=== PATIENT | male | born 1965 | race Two or more races ===

== ENCOUNTER 2024-07-17 11:56 | Inpatient (IN) | payer MEDICAID ==
[~2024-07-17] VITALS: Ht 177.8 cm; Wt 78.5 kg
[2024-07-17 13:10] LABS: APPEARANCE,URINE CLEAR (CLEAR); BILIRUBIN,URINE NEGATIVE (NEGATIVE); BLOOD, URINE NEGATIVE Ery/uL (NEGATIVE); COLOR,URINE YELLOW (YELLOW); KETONES,URINE NEGATIVE (NEGATIVE); LEUKOCYTE ESTERASE ,URINE NEGATIVE (NEGATIVE); NITRITE, URINE NEGATIVE (NEGATIVE); PROTEIN,URINE NEGATIVE (NEGATIVE); UGLUCOSE NEGATIVE (NEGATIVE)
[2024-07-17 13:13] LABS: INR 1.36 (0.91-1.10); PARTIAL THROMBOPLASTIN TIME 32.8 SEC (24.3-34.3); PROTHROMBIN TIME 14.1 SECS (9.2-11.1)
[2024-07-17 13:25] LABS: CALCIUM, SERUM 9.7 mg/dL (8.5-10.1); CARBON DIOXIDE 22 mmol/L (21-32); CHLORIDE 105 mmol/L (98-107); CREATININE 1.3 mg/dL (0.6-1.3); GLUCOSE 284 mg/dL (74-106); POTASSIUM 3.8 mmol/L (3.5-5.1); SODIUM SERUM 141 mmol/L (136-145); UREA NITROGEN, BLOOD 16 mg/dL (7-18)
[2024-07-17 13:28] LABS: SERUM AMMONIA 191 umol/L (11-32)
[2024-07-17 13:30] LABS: ADD URINE CULTURE YES; AMPHETAMINE, URINE NEGATIVE (NEGATIVE); BACTERIA,URINE Moderate /HPF (None Seen); BARBITURATE, URINE NEGATIVE (NEGATIVE); BENZODIAZEPINE, URINE NEGATIVE (NEGATIVE); CANNABINOID, URINE NEGATIVE (NEGATIVE); COCCAINE, URINE NEGATIVE (NEGATIVE); OPIATE, URINE NEGATIVE (NEGATIVE); PHENCYCLIDINE SCREEN,URINE NEGATIVE (NEGATIVE); RBC,URINE 0-2 /HPF (0-2); SQUAMOUS EPITHELIAL CELL,UR None Seen /HPF (None Seen); WBC,URINE 0-2 /HPF (0-3)
[2024-07-17 13:30] LABS: ALANINE AMINOTRANSFERASE 37 U/L (12-78); ALKALINE PHOSPHATASE 247 U/L (46-116); ASPARTATE AMINOTRANSFERASE 42 U/L (15-37); BILIRUBIN,DIRECT 0.7 mg/dL (0.0-0.2); BILIRUBIN,TOTAL 1.9 mg/dL (0.2-1.0); TOTAL PROTEIN, SERUM 7.4 g/dL (6.4-8.2)
[2024-07-17 13:31] LABS: SALICYLATE < 0.2 mg/dL (2.8-20.0)
[2024-07-17 13:37] LABS: ACETAMINOPHEN <10 ug/ml (10-30); ALCOHOL, BLOOD < 10 mg/dL (0-10)
[2024-07-17 13:50] LABS: BASOPHILS % (AUTO) 0.2 % (0.0-2.0); EOSINOPHILS # (AUTO) 0.1 K/uL (0.0-0.7); EOSINOPHILS % (AUTO) 0.9 % (0.0-6.0); HEMATOCRIT 35 % (39-51); HEMOGLOBIN 12.5 g/dL (13.5-17.5); LYMPHOCYTES % (AUTO) 14.7 % (20.0-44.0); MEAN CORPUSCULAR HEMOGLOBIN 33 PG (26.0-33.0); MEAN CORPUSCULAR HGB CONC 35 g/dl (31.0-36.0); MEAN CORPUSCULAR VOLUME 93 fL (80-96); MONOCYTES # (AUTO) 0.7 K/uL (0.1-1.30); MONOCYTES % (AUTO) 9.7 % (2.0-12.0); NEUTROPHILS % (AUTO) 74.5 % (43.0-81.0); PLATELET COUNT (AUTO) 126 K/uL (150-450); RED CELL DISTRIBUTION WIDTH 14.8 % (11.5-15.0); WHITE BLOOD COUNT (AUTO) 6.7 K/uL (4.3-11.0)
[2024-07-17] MEDS: LACTULOSE 10 G/15 ML UDC (PYXIS) PO STA (16:21)
[2024-07-17] MEDS: RIFAXIMIN 200 MG TABLET PO STA (16:22)
[2024-07-17] MEDS ORDERED: LACTULOSE 10 G/15 ML UDC (PYXIS) ONE (16:28)
[2024-07-17] MEDS ORDERED: ACETAMINOPHEN 325 MG TABLET PO PRN (17:00)
[2024-07-17] MEDS ORDERED: DEXTROSE 50%-WATER 50 ML DISP.SYRIN IV PRN (17:00)
[2024-07-17] MEDS ORDERED: LACTULOSE 10 G/15 ML UDC (PYXIS) PR ONE (17:00)
[2024-07-17] MEDS ORDERED: POTA10TA11 PO (17:15)
[2024-07-17] MEDS ORDERED: RIFA550T PO (17:15)
[2024-07-17] MEDS ORDERED: NALT50TA PO (17:15)
[2024-07-17] MEDS ORDERED: ATOR10TA PO (17:15)
[2024-07-17] MEDS ORDERED: LACT10SO58 PO (17:15)
[2024-07-17] MEDS ORDERED: FURO-144 PO (17:15)
[2024-07-17] MEDS ORDERED: METF-442 PO (17:15)
[2024-07-17] MEDS ORDERED: PANT40TA2 PO (17:15)
[2024-07-17] MEDS ORDERED: TAMS-12 PO (17:15)
[2024-07-17] MEDS ORDERED: APIX5TAB PO (17:15)
[2024-07-17] MEDS: BLOOD SUGAR DIAGNOSTIC 1 EACH STRIP VI SCH (17:30)
[2024-07-17] MEDS: LACTULOSE 10 G/15 ML UDC (PYXIS) PO SCH (17:46)
[2024-07-17] MEDS: RIFAXIMIN 550 MG TABLET PO SCH (17:46)
[2024-07-17] MEDS: LACTULOSE UDC 200 G in SODIUM CHLORIDE IRRIG SOLUTION 400 ML IR ONE (17:55)
[2024-07-17 18:37] VITALS: BP 135/75; TEMP 98.3; O2SAT 98
[2024-07-17 20:00] VITALS: BP 145/73; TEMP 97.9; O2SAT 99
[2024-07-18] VITALS: BP 148/67; TEMP 97.9; O2SAT 98
[2024-07-18 04:00] VITALS: BP 147/65; TEMP 98; O2SAT 99
[2024-07-18 07:34] LABS: BASOPHILS # (AUTO) 0.1 K/uL (0.0-0.2); BASOPHILS % (AUTO) 0.8 % (0.0-2.0); EOSINOPHILS # (AUTO) 0.3 K/uL (0.0-0.7); EOSINOPHILS % (AUTO) 4.6 % (0.0-6.0); HEMATOCRIT 35 % (39-51); HEMOGLOBIN 12.2 g/dL (13.5-17.5); LYMPHOCYTES # (AUTO) 1.7 K/uL (0.8-4.8); LYMPHOCYTES % (AUTO) 27.6 % (20.0-44.0); MEAN CORPUSCULAR HEMOGLOBIN 32 PG (26.0-33.0); MEAN CORPUSCULAR HGB CONC 35 g/dl (31.0-36.0); MEAN CORPUSCULAR VOLUME 94 fL (80-96); MONOCYTES # (AUTO) 0.7 K/uL (0.1-1.30); MONOCYTES % (AUTO) 10.5 % (2.0-12.0); NEUTROPHILS # (AUTO) 3.5 K/uL (1.8-8.9); NEUTROPHILS % (AUTO) 56.5 % (43.0-81.0); PLATELET COUNT (AUTO) 128 K/uL (150-450); RED BLOOD CELL COUNT(AUTO) 3.75 MIL/uL (4.5-6.0); RED CELL DISTRIBUTION WIDTH 15.2 % (11.5-15.0); WHITE BLOOD COUNT (AUTO) 6.2 K/uL (4.3-11.0)
[2024-07-18 08:00] VITALS: BP 152/70; TEMP 98.8; O2SAT 97
[2024-07-18] MEDS: INSULIN REGULAR, HUMAN 100 UNIT/ML 3 ML VIAL SQ PRN (08:19)
[2024-07-18] MEDS ORDERED: Medication Not On Formulary EA (Naltrexone Hcl 50 MG) PO SCH (09:00)
[2024-07-18] MEDS: POTASSIUM CHLORIDE 10 MEQ TABLET.SA PO SCH (09:39)
[2024-07-18] MEDS: FUROSEMIDE 40 MG TABLET PO SCH (09:39)
[2024-07-18] MEDS: APIXABAN 5 MG TABLET PO SCH (09:40)
[2024-07-18 10:20] LABS: ALBUMIN 2.9 g/dL (3.4-5.0); BILIRUBIN,TOTAL 2.5 mg/dL (0.2-1.0); CALCIUM, SERUM 9.2 mg/dL (8.5-10.1); POTASSIUM 3.6 mmol/L (3.5-5.1)
[2024-07-18 10:28] LABS: THYROID STIMULATING HORMONE 0.95 uIU/mL (0.358-3.74)
[2024-07-18 12:00] VITALS: BP 131/61; TEMP 98.3; O2SAT 99
[2024-07-18 16:00] VITALS: BP 137/61; TEMP 98.5; O2SAT 99
[2024-07-18] MEDS: METFORMIN 500 MG TABLET PO SCH (16:44)
[2024-07-18 20:00] VITALS: BP 136/64; TEMP 98.2; O2SAT 98
[2024-07-18] MEDS: ATORVASTATIN 10 MG TABLET PO SCH (21:21)
[2024-07-18] MEDS: TAMSULOSIN 0.4 MG CAP.SR.24H PO SCH (21:21)
[2024-07-19] VITALS: BP 130/61; TEMP 98.1; O2SAT 98
[2024-07-19 04:00] VITALS: BP 124/52; TEMP 98.4; O2SAT 98
[2024-07-19 07:22] LABS: BASOPHILS # (AUTO) 0.1 K/uL (0.0-0.2); BASOPHILS % (AUTO) 0.8 % (0.0-2.0); EOSINOPHILS # (AUTO) 0.3 K/uL (0.0-0.7); EOSINOPHILS % (AUTO) 3.7 % (0.0-6.0); HEMATOCRIT 35 % (39-51); LYMPHOCYTES # (AUTO) 1.9 K/uL (0.8-4.8); LYMPHOCYTES % (AUTO) 23.2 % (20.0-44.0); MEAN CORPUSCULAR HEMOGLOBIN 32 PG (26.0-33.0); MEAN CORPUSCULAR HGB CONC 34 g/dl (31.0-36.0); MEAN CORPUSCULAR VOLUME 94 fL (80-96); MONOCYTES # (AUTO) 0.8 K/uL (0.1-1.30); MONOCYTES % (AUTO) 9.6 % (2.0-12.0); NEUTROPHILS # (AUTO) 5.2 K/uL (1.8-8.9); NEUTROPHILS % (AUTO) 62.7 % (43.0-81.0); PLATELET COUNT (AUTO) 132 K/uL (150-450); RED BLOOD CELL COUNT(AUTO) 3.76 MIL/uL (4.5-6.0); RED CELL DISTRIBUTION WIDTH 15.3 % (11.5-15.0); WHITE BLOOD COUNT (AUTO) 8.3 K/uL (4.3-11.0)
[2024-07-19 08:00] VITALS: BP 130/92; TEMP 97.7; O2SAT 97
[2024-07-19 08:05] LABS: ALBUMIN 2.7 g/dL (3.4-5.0); BILIRUBIN,TOTAL 2.6 mg/dL (0.2-1.0); POTASSIUM 3.6 mmol/L (3.5-5.1); TOTAL PROTEIN, SERUM 6.8 g/dL (6.4-8.2)
[2024-07-19] MEDS: PANTOPRAZOLE 40 MG TABLET.DR PO SCH (08:07)
[2024-07-19 09:28] LABS: THYROID STIMULATING HORMONE 0.99 uIU/mL (0.358-3.74)
[2024-07-19 12:00] VITALS: BP 135/62; TEMP 97.9; O2SAT 99
[2024-07-19 16:00] VITALS: BP 119/58; TEMP 97.9; O2SAT 98
[2024-07-19 20:00] VITALS: BP 138/62; TEMP 98.2; O2SAT 100
[2024-07-19] MEDS: *INSULIN REGULAR(HUMULIN R)HUM 100 UNIT/ML VIAL SQ PRN (21:15)
[2024-07-20 00:30] VITALS: BP 138/62; TEMP 98.2; O2SAT 100
[2024-07-20 08:00] VITALS: BP 125/64; TEMP 98.2; O2SAT 100
[2024-07-20 10:14] LABS: CALCIUM, SERUM 8.1 mg/dL (8.5-10.1); POTASSIUM 3.5 mmol/L (3.5-5.1)
[2024-07-20 16:00] VITALS: BP 113/59; TEMP 98.6; O2SAT 100
[2024-07-20 20:00] VITALS: BP 121/56; TEMP 98.2; O2SAT 97
[2024-07-21 05:00] VITALS: BP 117/54; TEMP 98.4; O2SAT 97
[2024-07-21 06:29] LABS: ALBUMIN 2.4 g/dL (3.4-5.0); BILIRUBIN,TOTAL 1.6 mg/dL (0.2-1.0); CALCIUM, SERUM 8.9 mg/dL (8.5-10.1); POTASSIUM 3.6 mmol/L (3.5-5.1); TOTAL PROTEIN, SERUM 6.3 g/dL (6.4-8.2)
[2024-07-21 08:41] LABS: BASOPHILS # (AUTO) 0.1 K/uL (0.0-0.2); BASOPHILS % (AUTO) 0.8 % (0.0-2.0); EOSINOPHILS # (AUTO) 0.3 K/uL (0.0-0.7); EOSINOPHILS % (AUTO) 3.5 % (0.0-6.0); HEMATOCRIT 33 % (39-51); HEMOGLOBIN 11.4 g/dL (13.5-17.5); LYMPHOCYTES # (AUTO) 1.8 K/uL (0.8-4.8); LYMPHOCYTES % (AUTO) 24.2 % (20.0-44.0); MEAN CORPUSCULAR HEMOGLOBIN 33 PG (26.0-33.0); MEAN CORPUSCULAR HGB CONC 35 g/dl (31.0-36.0); MEAN CORPUSCULAR VOLUME 94 fL (80-96); MONOCYTES # (AUTO) 0.8 K/uL (0.1-1.30); MONOCYTES % (AUTO) 11.7 % (2.0-12.0); NEUTROPHILS # (AUTO) 4.3 K/uL (1.8-8.9); NEUTROPHILS % (AUTO) 59.8 % (43.0-81.0); PLATELET COUNT (AUTO) 134 K/uL (150-450); RED BLOOD CELL COUNT(AUTO) 3.51 MIL/uL (4.5-6.0); RED CELL DISTRIBUTION WIDTH 14.8 % (11.5-15.0); WHITE BLOOD COUNT (AUTO) 7.3 K/uL (4.3-11.0)
== END 2024-07-21 15:50 | disposition home health service (06) | DRG 280 ==
LOC: ER 12:01 → EDBD 12:01 → TELE-TD 14:53 → TELE1 17:04 → MEDSG1 07-19 11:35
PROVIDERS: ADMIT Internal Medicine; ATTEND Internal Medicine
DX: K76.82 Hepatic encephalopathy (principal); K70.30 Alcoholic cirrhosis of liver without ascites; E11.9 Type 2 diabetes mellitus without complications; F10.21 Alcohol dependence, in remission; E78.5 Hyperlipidemia, unspecified; N40.0 Benign prostatic hyperplasia without lower urinary tract symptoms; Z86.718 Personal history of other venous thrombosis and embolism; Z79.01 Long term (current) use of anticoagulants; Z79.84 Long term (current) use of oral hypoglycemic drugs; Z91.199 Patient's noncompliance with other medical treatment and regimen due to unspecified reason; Z87.891 Personal history of nicotine dependence
CPT/HCPCS: 36415; 70450-TC; 71045-TC; 80048-TC; 80053-TC; 80076-TC; 81001; 82140-TC; 82962-TC; 84443-TC; 84484-TC; 85025-TC; 85730-TC; 87086-TC; 97116-TC; 97530-TC; A4217; G0378; G0480; J1815; J7030

== ENCOUNTER 2024-08-13 12:59 | Emergency (ER) | payer MEDICAID ==
[~2024-08-13] VITALS: Ht 177.8 cm; Wt 74.8 kg
[~2024-08-13 12:59] MED LIST: APIX5TAB PO; ATOR10TA PO; FURO-144 PO; LACT10SO58 PO; METF-442 PO; NALT50TA PO; PANT40TA2 PO; POTA10TA11 PO; RIFA550T PO; TAMS-12 PO
[2024-08-13 14:01] LABS: APPEARANCE,URINE CLEAR (CLEAR); BILIRUBIN,URINE NEGATIVE (NEGATIVE); BLOOD, URINE NEGATIVE Ery/uL (NEGATIVE); COLOR,URINE YELLOW (YELLOW); KETONES,URINE NEGATIVE (NEGATIVE); LEUKOCYTE ESTERASE ,URINE 1+ (NEGATIVE); NITRITE, URINE NEGATIVE (NEGATIVE); PROTEIN,URINE NEGATIVE (NEGATIVE); UGLUCOSE NEGATIVE (NEGATIVE)
[2024-08-13 14:06] LABS: BASOPHILS % (AUTO) 0.5 % (0.0-2.0); EOSINOPHILS # (AUTO) 0.1 K/uL (0.0-0.7); EOSINOPHILS % (AUTO) 1.8 % (0.0-6.0); HEMATOCRIT 37 % (39-51); HEMOGLOBIN 12.6 g/dL (13.5-17.5); LYMPHOCYTES # (AUTO) 1.3 K/uL (0.8-4.8); LYMPHOCYTES % (AUTO) 16.4 % (20.0-44.0); MEAN CORPUSCULAR HEMOGLOBIN 32 PG (26.0-33.0); MEAN CORPUSCULAR HGB CONC 34 g/dl (31.0-36.0); MEAN CORPUSCULAR VOLUME 93 fL (80-96); MONOCYTES # (AUTO) 0.7 K/uL (0.1-1.30); MONOCYTES % (AUTO) 8.7 % (2.0-12.0); NEUTROPHILS # (AUTO) 5.6 K/uL (1.8-8.9); NEUTROPHILS % (AUTO) 72.6 % (43.0-81.0); PLATELET COUNT (AUTO) 164 K/uL (150-450); RED BLOOD CELL COUNT(AUTO) 3.93 MIL/uL (4.5-6.0); RED CELL DISTRIBUTION WIDTH 15.9 % (11.5-15.0); WHITE BLOOD COUNT (AUTO) 7.7 K/uL (4.3-11.0)
[2024-08-13 14:08] LABS: ADD URINE CULTURE YES; BACTERIA,URINE Many /HPF (None Seen); RBC,URINE 0-2 /HPF (0-2); SQUAMOUS EPITHELIAL CELL,UR Few /HPF (None Seen); WBC,URINE 21-50 /HPF (0-3)
[2024-08-13 14:11] LABS: CALCIUM, SERUM 9.5 mg/dL (8.5-10.1); CARBON DIOXIDE 21 mmol/L (21-32); CHLORIDE 111 mmol/L (98-107); CREATININE 1.2 mg/dL (0.6-1.3); GLUCOSE 188 mg/dL (74-106); POTASSIUM 3.7 mmol/L (3.5-5.1); SODIUM SERUM 147 mmol/L (136-145); UREA NITROGEN, BLOOD 19 mg/dL (7-18)
[2024-08-13 14:12] LABS: SERUM AMMONIA 182 umol/L (11-32)
[2024-08-13 14:17] LABS: ALANINE AMINOTRANSFERASE 34 U/L (12-78); ALBUMIN 3.1 g/dL (3.4-5.0); ALCOHOL, BLOOD < 3 mg/dL (0-10); ALKALINE PHOSPHATASE 180 U/L (46-116); ASPARTATE AMINOTRANSFERASE 29 U/L (15-37); BILIRUBIN,DIRECT 0.9 mg/dL (0.0-0.2); BILIRUBIN,TOTAL 2.3 mg/dL (0.2-1.0); TOTAL PROTEIN, SERUM 7.4 g/dL (6.4-8.2)
[2024-08-13 14:26] LABS: ACETAMINOPHEN <10 ug/ml (10-30); SALICYLATE < 2.8 mg/dL (2.8-20.0)
[2024-08-13] MEDS ORDERED: CIPROFLOXACIN IV RTU 200 ML IV ONE (14:26)
[2024-08-13] MEDS: CIPROFLOXACIN IV RTU 400 MG in PREMIX 1 EA IV SCH (14:28)
[2024-08-13 14:29] LABS: LACTIC ACID 3.7 mmol/L (0.4-2.0)
[2024-08-13] MEDS: LACTULOSE 10 G/15 ML UDC (PYXIS) PO ONE (14:30)
[2024-08-13] MEDS ORDERED: DICL100G34 TP (14:53)
[2024-08-13] MEDS ORDERED: INSU100I4 SQ (14:53)
[2024-08-13] MEDS ORDERED: GLIM2TAB31 PO (14:53)
[2024-08-13] MEDS ORDERED: HYDR28.32 TP (14:53)
[2024-08-13] MEDS ORDERED: POVI1MED TP (14:53)
[2024-08-13] MEDS ORDERED: ZINC220C6 PO (14:53)
[2024-08-13] MEDS ORDERED: AMIN30LI2 PO (14:53)
[2024-08-14] MEDS ORDERED: CIPROFLOXACIN IV RTU 200 ML IV ONE (02:33)
[2024-08-14 04:22] VITALS: BP 138/68; TEMP 98; O2SAT 99
== END 2024-08-14 04:22 | disposition short-term general hospital (02) ==
LOC: ER 13:03
DX: K76.82 Hepatic encephalopathy (principal); N39.0 Urinary tract infection, site not specified; R41.82 Altered mental status, unspecified; E11.9 Type 2 diabetes mellitus without complications; R06.00 Dyspnea, unspecified; R07.9 Chest pain, unspecified; Z79.01 Long term (current) use of anticoagulants; Z79.84 Long term (current) use of oral hypoglycemic drugs; Z79.899 Other long term (current) drug therapy; Z88.0 Allergy status to penicillin; Z88.1 Allergy status to other antibiotic agents; Z88.5 Allergy status to narcotic agent; Z91.030 Bee allergy status; Z87.19 Personal history of other diseases of the digestive system; Z20.822 Contact with and (suspected) exposure to COVID-19
CPT/HCPCS: 99291; 96365; 93005; 71045; 70450; 82140 ×2; 85025; 80048; 83605 ×2; 80076; 81001; 36415; 84443; 84484; 82962; 87426; 80143; 80320; 80179; 96366; A4216; J0744 ×3; G0480